=== PATIENT | female | born 1995 | race Caucasian/White ===

== ENCOUNTER 2016-11-01 08:44 | Day surgery (SDC) | payer BC ==
[2016-10-31 13:27] LABS: T4 (THYROXINE) TOTAL 9.2 MCG/DL (4.5-12.0); ULTRASENSITIVE TSH 1.27 MCIU/ML (0.358-3.740)
--- NOTE | ~2016-11-01 | OP ---
Record Of Operation [facility] [address] [place]. [address] NAME: PARESH CHANG : 89 STATUS : [facility]#: [id number] AGE: 21 ADM/REG DATE : 11/01/16 MR#: [id number] REPORT SERV DATE: 11/01/16 DICTATED BY: MARIANELA HUBER JR. DATE: 11/01/16 REPORT STATUS : Draft TRANSCRIBED BY: MODGaby DATE: 11/01/16 DATE OF PROCEDURE: 11/01/2016 PREOPERATIVE DIAGNOSIS: Primary palmar and plantar hyperhidrosis, status post failure of conservative therapy. POSTOPERATIVE DIAGNOSIS: Primary palmar and plantar hyperhidrosis, status post failure of conservative therapy. NAME OF OPERATION: Bilateral endoscopic thoracic sympathectomy (T3), bilateral intercostal nerve blocks. SURGEON: Marianela Huber M.D. RESIDENT SURGEON: Lion Harvey MD [employer]BR[employer] MECH[employer]IC: [place] Yeboah. ANESTHESIA: General endotracheal. FINDINGS: The patient was noted to have normal anatomy. Her nerve on the left side of her chest was more inflamed and fibrotic. There was no accessory nerve Arpan seen. She had an approximate 0.8 degree centigrade temperature change bilaterally. The hands were warm and dry at the end of the operation. DETAILS OF PROCEDURE: After adequate general anesthesia, the patient was intubated as described above. The patient's chest and axillary regions were prepped and draped in the usual sterile fashion. A small incision was made in the right axillary region with a #15 scalpel. A Veress needle was introduced into the thoracic cavity insufflating the chest to 10 cm of pressure. A 3 mm trocar was then introduced followed by placement of 2.7 mm lens into the thoracic cavity. The above findings were noted. A hook cautery was placed through the same incision site into the chest cavity where the second, third and fourth ribs were identified. The sympathetic nerve was also identified transversing these regions. Exploration of the chest was performed with the above findings. The nerve was transected at the above described levels. An appropriate temperature change was also observed as described above. The hook cautery was then removed. 0.5% Ropivacaine was then utilized as an axillary nerve block. A suction catheter was placed into the chest cavity where the C02 was removed and the lung reinflated. The scope was withdrawn and incision was closed utilizing Dermabond. Attention was then placed to the left axillary region where again a small incision was made with a #15 scalpel blade. The Veress needle was introduced into the left chest insufflating the chest to 10 cm of pressure. The camera was introduced followed by the hook cautery. The sympathetic nerve as well as the second, third and fourth ribs were all identified. The nerve was transected at the above levels. The above documented temperature readings were noted. Again half percent Ropivacaine solution was used for an axillary nerve block. This Record Of Operation [place] [id number] [place]. [address] NAME: PARESH CHANG : [birth year] STATUS : [facility]#: [id number] AGE: 21 ADM/REG DATE : 11/01/16 MR#: [id number] REPORT SERV DATE: 11/01/16 DICTATED BY: MARIANELA HUBER JR. DATE: 11/01/16 REPORT STATUS : Draft TRANSCRIBED BY: DERECK DATE: 11/01/16 was done under direct visualization. A suction catheter was then placed in the chest cavity and the CO2 removed. The lung was reinflated. The camera was withdrawn. The incision was closed with Dermabond dressing. The procedure was terminated at this point. The patient was transferred to the recovery room in stable condition. JESSA/DERECK Marianela Huber Jr., M.D. / [id number] CC: Marianela Huber Jr., M.D.
[~2016-11-01 08:44] MED LIST: [UNRECOGNIZED DRUG - OTHER]
== END 2016-11-01 14:44 | disposition home or self-care (01) ==
LOC: SDC 08:44
PROVIDERS: Thoracic Surgery (Cardiothoracic Vascular Surgery)
PROC: 3E0T3CZ (ICD-10-PCS; 2016-11-01)
PROC: 01B Peripheral Nervous System, Excision (ICD-10-PCS; principal; 2016-11-01 09:45)
DX: L74.512 Primary focal hyperhidrosis, palms (principal); Z82.49 Family history of ischemic heart disease and other diseases of the circulatory system
CPT/HCPCS: 71020; 83036; 84436; 84443; 84479; 84703; A9270-GY; J0690; J2250; J2405; J2710; J2795; J3010